=== PATIENT | male | born 1950 | race Caucasian/White ===

== ENCOUNTER 2017-01-20 17:36 | Emergency (ER) | payer MEDICARE ==
[~2017-01-20] VITALS: Ht 188 cm; Wt 87.0 kg
[2017-01-20 17:39] VITALS: BP 127/65; PULSE 68; RESP 18; TEMP 98.6; O2SAT 95
--- NOTE | 2017-01-20 17:53 | PD ---
Physical Exam Time Seen by Provider: 17:52 Narrative 67 y/o male with R foot swelling, fever 101 yesterday. Vital signs reviewed. Seen at triage desk. Awaiting bed placement. Data Data Last Documented VS Vital Signs Date Time Temp Pulse Resp B/P Pulse Ox O2 Delivery O2 Flow Rate FiO2 01/20/17 17:39 98.6 68 18 127/65 95 MDM Medical Record Reviewed: Yes Supervised Visit with ML: No Keny Davis Jan 20, 2017 17:53
[2017-01-20] MEDS ORDERED: SODIUM CHLORIDE 0.9% FLUSH 10 ML FLUSH IVF PRN (19:15)
--- NOTE | 2017-01-20 20:08 | PD ---
HPI Chief Complaint: Edema Time Seen by Provider: 19:05 Travel History International Travel<30 days: No Contact w/Intl Traveler<30days: No Traveled to known affect area: No History of Present Illness HPI Patient is a 67-year-old male presents emergency Department with complaints of right lower extremity redness and pain. Patient states that initially was having some problems walking on his right foot, he had an MRI as an outpatient which did show some distraction of the joint secondary to arthritis but no infection according to his . They became alarmed when his leg started turning red today and he began running fevers and came in the emergency department for concerns of cellulitis. Patient appears while he has no systemic symptoms including no chest pain or shortness of breath abdominal pain or nausea vomiting. He denies any history of stasis or long trips or any blood clots. PFSH Past Medical History Medical History: Denies Significant Hx Tetanus Vaccination: < 5 Years Influenza Vaccination: No Past Surgical History Surgical History: No Previous Surgery Social History Alcohol Use: Yes (OCC) Tobacco Use: No Substance Use: No Allergies-Medications (Allergen,Severity, Reaction): Coded Allergies: No Known Allergies (Unverified , 01/20/17) Reported Meds & Prescriptions Reported Meds & Active Scripts Active Clindamycin (Clindamycin HCl) 150 Mg Cap 300 Mg PO Q6H 7 Days Review of Systems Except as stated in HPI: all other systems reviewed are Neg Physical Exam Narrative GENERAL: Well-nourished, well-developed patient. In no apparent distress. SKIN: There is a cellulitis of the anterior right lower leg. There is some streaking proceeding up the medial aspect of his right leg to the knee. Sialitis appears to be mid tibial nearly rupture on the leg. It is also over the foot. There is mild swelling of the right great toe. No discernible abscess. No tenderness to palpation. There is a small scab over the right fourth toe. Appears to be healing well. Otherwise the skin is intact. HEAD: Normocephalic. EYES: No scleral icterus. No injection or drainage. NECK: Supple, trachea midline. No JVD or lymphadenopathy. CARDIOVASCULAR: Regular rate and rhythm without murmurs, gallops, or rubs. RESPIRATORY: Breath sounds equal bilaterally. No accessory muscle use. GASTROINTESTINAL: Abdomen soft, non-tender, nondistended. MUSCULOSKELETAL: No cyanosis, or edema. BACK: Nontender without obvious deformity. No CVA tenderness. Data Data Last Documented VS Vital Signs Date Time Temp Pulse Resp B/P Pulse Ox O2 Delivery O2 Flow Rate FiO2 01/20/17 21:10 95 Room Air 01/20/17 17:39 98.6 68 18 127/65 Orders Basic Metabolic Panel (Bmp) (01/20/17 19:10) Complete Blood Count With Diff (01/20/17 19:10) Ecg Monitoring (01/20/17 19:10) Iv Access Insert/Monitor (01/20/17 19:10) Oximetry (01/20/17 19:10) Oxygen Administration (01/20/17 19:10) Sodium Chloride 0.9% Flush (Ns Flush) (01/20/17 19:15) Blood Culture (01/20/17 20:06) Clindamycin Inj (Cleocin Inj) (01/20/17 21:00) Labs Laboratory Tests Test 01/20/17 19:52 White Blood Count 9.0 TH/MM3 Red Blood Count 4.21 MIL/MM3 Hemoglobin 12.5 GM/DL Hematocrit 37.1 % Mean Corpuscular Volume 88.2 FL Mean Corpuscular Hemoglobin 29.8 PG Mean Corpuscular Hemoglobin 33.8 % Concent Red Cell Distribution Width 13.9 % Platelet Count 161 TH/MM3 Mean Platelet Volume 8.6 FL Neutrophils (%) (Auto) 81.3 % Lymphocytes (%) (Auto) 9.0 % Monocytes (%) (Auto) 9.1 % Eosinophils (%) (Auto) 0.4 % Basophils (%) (Auto) 0.2 % Neutrophils # (Auto) 7.4 TH/MM3 Lymphocytes # (Auto) 0.8 TH/MM3 Monocytes # (Auto) 0.8 TH/MM3 Eosinophils # (Auto) 0.0 TH/MM3 Basophils # (Auto) 0.0 TH/MM3 CBC Comment DIFF FINAL Differential Comment Sodium Level 134 MEQ/L Potassium Level 3.8 MEQ/L Chloride Level 102 MEQ/L Carbon Dioxide Level 26.4 MEQ/L Anion Gap 6 MEQ/L Blood Urea Nitrogen 15 MG/DL Creatinine 1.04 MG/DL Estimat Glomerular Filtration 72 ML/MIN Rate Random Glucose 103 MG/DL Calcium Level 9.4 MG/DL MDM Medical Decision Making Medical Screen Exam Complete: Yes Emergency Medical Condition: Yes Differential Diagnosis Cellulitis, abscess unlikely, DVT highly unlikely, DVT seems highly unlikely. Narrative Course Patient was roomed in emergency department, basic labs were sent as a baseline, patient is afebrile has no Sirs criteria and is amenable to trial of outpatient. Was given clindamycin to the IV in the ER, we'll be placing Theramycin outpatient, recommended probiotics and discussed return to ED criteria. He is agreeable. Seems reliable for follow-up. Diagnosis Primary Impression: Cellulitis Med/Other Pt SpecificInfo: Prescription(s) given Scripts Clindamycin 150 Mg [id number] Mg PO Q6H 7 Days Ref 0 Prov:Dk Brady MD 01/20/17 Disposition: 01 DISCHARGE HOME Condition: Stable Dk Brady MD Jan 20, 2017 20:08
[2017-01-20 20:27] LABS: AUTOMATED NEUTROPHIL # 7.4 TH/MM3 (1.8-7.7); BASOPHIL % 0.2 % (0.0-2.0); EOSINOPHIL % 0.4 % (0.0-4.0); HEMATOCRIT 37.1 % (39.0-51.0); HEMO FLAGS DIFF FINAL; LYMPHOCYTE # 0.8 TH/MM3 (1.0-4.8); MEAN CELL VOLUME 88.2 FL (80.0-100.0); MEAN CORPUSCULAR HEMOGLOBIN 29.8 PG (27.0-34.0); MEAN CORPUSCULAR HGB CONC 33.8 % (32.0-36.0); MONO % 9.1 % (0.0-8.0); NEUT % 81.3 % (16.0-70.0); PLATELET COUNT 161 TH/MM3 (150-450); RED BLOOD COUNT 4.21 MIL/MM3 (4.50-5.90); RED CELL DISTRIBUTION WIDTH 13.9 % (11.6-17.2)
[2017-01-20 20:40] LABS: BICARBONATE 26.4 MEQ/L (21.0-32.0); POTASSIUM 3.8 MEQ/L (3.5-5.1)
[2017-01-20] MEDS ORDERED: CLINDAMYCIN INJ 600 MG in SODIUM CHLORIDE 0.9% INJ 100 ML IV ONE (21:00)
[2017-01-20] MEDS ORDERED: CLIN1CAP5 PO (21:00)
[2017-01-20 21:10] VITALS: O2SAT 95
== END 2017-01-20 23:37 | disposition home or self-care (01) ==
LOC: NEPD 17:36
DX: L03.115 Cellulitis of right lower limb (principal)
CPT/HCPCS: 80048; 85025; 87040; 96365